=== PATIENT | male | born 1995 | race Caucasian/White ===

== ENCOUNTER 2022-12-24 03:07 | Emergency (ER) | payer OTHER, SELFPAY ==
[2022-12-24 03:17] VITALS: BP 169/102; PULSE 77; RESP 18; TEMP 36.3; O2SAT 99; BMI 30.8
--- NOTE | 2022-12-24 03:40 | ED_ITS ---
HPI - Abdominal Pain General Chief Complaint: Abdominal Pain Stated Complaint: abd pain, belly button is irratated Time Seen by Provider: 12/24/22 03:30 Source: patient Mode of arrival: Ambulatory History of Present Illness HPI narrative: Patient is a healthy 27-year-old male who presents today with variety of symptoms. He reports for the last couple of days he has had some nausea episode or 2 of vomiting and then diarrhea. He is having some lower abdominal cramping. Denies any bloody stools. He also reports that now having some erythema in his umbilicus region as well. He report some isopropyl alcohol on it. It is really nontender. He denies any fever or chills. No one else is sick home Related Data Previous Rx's Medication Instructions Recorded ondansetron 4 mg disintegrating 4 mg PO Q8H PRN nausea and 12/24/22 tablet vomiting #10 tabs Allergies Allergy/AdvReac Type Severity Reaction Status Date / Time No Known Drug Allergies Allergy Verified 12/24/22 03:17 Review of Systems Review of Systems ROS Unobtainable: All systems reviewed & are unremarkable except as noted in HPI and below Patient History Social History Smoking Status: Current some day smoker Smoking Status: Current some day smoker tobacco type: vaping alcohol intake frequency: holidays/special occasions only Substance Use Type: does not use Exam Initial Vital Signs Initial Vital Signs: Vital Signs Temperature 97.3 F L 12/24/22 03:17 Pulse Rate 77 12/24/22 03:17 Respiratory Rate 18 12/24/22 03:17 Blood Pressure 169/102 H 12/24/22 03:17 Pulse Oximetry 99 12/24/22 03:17 Oxygen Delivery Method Room Air 12/24/22 03:17 GENERAL: Alert pleasant 27-year-old male and in no acute distress. HEENT: Head atraumatic,EOMI, pupils reactive, face symmetric, moist mucous membranes CARDIOVASCULAR: Regular rate and rhythm without murmurs, rubs or gallops. RESPIRATORY: Breath sounds equal bilaterally, no wheezes rales or rhonchi. ABDOMEN: Soft, nontender. Normoactive bowel sounds all 4 quadrants. No guarding or rebound. EXTREMITIES: Normal range of motion, no clubbing or edema. Neurovascularly intact NEUROLOGICAL: Alert and oriented x4. SKIN: Warm, dry, no laceration, no petechiae, no rashes or lesions. Inside the umbilicus is mild erythema no surrounding erythema no fluctuation or swelling Course Orders Ordered: ED Orders 12/24/22 03:18 CBC Auto Diff [Complete Blood Count AUTO DIFF] Stat CMP [Comprehensive Metabolic Panel] Stat Vital Signs Vital signs: Vital Signs - 8 hr 12/24/22 03:17 Temperature 97.3 F L Pulse Rate 77 Respiratory Rate 18 Blood Pressure 169/102 H Pulse Oximetry 99 Oxygen Delivery Method Room Air MDM - Abdominal Pain Lab Data 12/24/22 03:18 12/24/22 03:18 Labs: Lab Results 12/24/22 12/24/22 Range/Units 03:18 03:18 WBC 12.1 H (4.5-11.0) X10^3/uL RBC 4.60 (4.5-5.9) X10^6/uL Hgb 13.8 (13.5-17.5) g/dL Hct 39.4 L (41-53) % MCV 85.7 (80-100) fL MCH 30.0 (26-34) PG MCHC 35.0 (30-36) % RDW 12.8 (11.6-14.8) % Plt Count 282 (150-400) X10^3/uL Neut % (Auto) 59.7 (50-75) % Lymph % (Auto) 28.9 (25-40) % [place] % (Auto) 9.5 (3-14) % Eos % (Auto) 1.7 L (2-4) % Baso % (Auto) 0.2 (0-2) % Neut # (Auto) 7200 H (8862-2644) /uL Lymph # (Auto) 3500 (0832-1962) /uL [place] # (Auto) 1200 H (0-900) /uL Eos # (Auto) 200 (0-450) /uL Baso # (Auto) 0 (0-100) /uL Sodium 138 (137-145) mmol/L Potassium 3.8 (3.4-5.1) mmol/L Chloride 103 (98-107) mmol/L Carbon Dioxide 27 (22-32) mmol/L BUN 20 (9-20) mg/dL Creatinine 0.94 (0.66-1.25) mg/dL Estimated GFR > 60 (>60) mL/min BUN/Creatinine Ratio 21.3 (6-22) Glucose 93 (70-100) mg/dL Calcium 10.1 (8.4-10.2) mg/dL Total Bilirubin 0.5 (0.2-1.3) mg/dL AST 30 (17-59) IU/L ALT 30 (<50) IU/L Alkaline Phosphatase 56 (38-126) U/L Total Protein 8.5 H (6.3-8.2) g/dL Albumin 4.8 (3.5-5.0) g/dL Globulin 3.7 (1.7-4.1) g/dL Albumin/Globulin Ratio 1.3 (1.0-2.8) MDM Narrative Medical decision making narrative: Patient 27-year-old male who presents with a variety of symptoms episodes of diarrhea nausea and vomiting for last couple of days. Mild abdominal cramping now. No vomiting vitals are stable. Symptoms consistent with a gastroenteritis. No evidence of dehydration. Umbilicus is mildly erythematous mostly appears irritated no evidence of cellulitis at this time. Blood work has been reviewed in his overall reassuring. He is tolerating fluids abdomen remains soft. No need for any further workup. Discharge Plan Departure Patient Disposition: Home Clinical Impression: Gastroenteritis Instructions: DI for Viral Gastroenteritis -- Adult Activity Restrictions/Additional Instructions: *You have been diagnosed with viral gastroenteritis *What to do: At this time increase fluids as tolerated recommend Gatorade or Gatorade like product. May increase diet as tolerated as well. Do not put any rubbing alcohol in your belly button. Try some antibiotic ointment 1-2 times daily. *Continue to take medications as directed Zofran 4 mg every 8 hours if needed for nausea or vomiting *Follow up with your primary care provider in 2-3 days or call [phone] *Return to ER if you should have persistent nausea vomiting diarrhea dizziness lightheadedness increasing redness abdominal pain or any new, worsening or concerning symptoms Prescriptions: New ondansetron 4 mg tablet,disintegrating 4 mg PO Q8H PRN (Reason: nausea and vomiting) Qty: 10 0RF Referrals: ProviderMargaret [Primary Care Provider] - Stand Alone Forms: Patient Portal/API
[2022-12-24 03:51] LABS: Alanine Aminotransferase 30 IU/L (<50); Albumin 4.8 g/dL (3.5-5.0); Albumin Globulin Ratio 1.3 (1.0-2.8); Alkaline Phosphatase 56 U/L (38-126); Aspartate Aminotransferase 30 IU/L (17-59); BUN Creatinine Ratio 21.3 (6-22); Bilirubin Total 0.5 mg/dL (0.2-1.3); Blood Urea Nitrogen 20 mg/dL (9-20); Calcium 10.1 mg/dL (8.4-10.2); Carbon Dioxide 27 mmol/L (22-32); Chloride 103 mmol/L (98-107); Estimated Glomerular Filt Rate > 60 mL/min (>60); Globulin 3.7 g/dL (1.7-4.1); Glucose 93 mg/dL (70-100); HEMOLYSIS < 15 (0-50); Potassium 3.8 mmol/L (3.4-5.1); Sodium 138 mmol/L (137-145); Total Protein 8.5 g/dL (6.3-8.2)
[2022-12-24 03:56] LABS: Add Manual Diff / Slide Review NO; Basophils Absolute Auto 0 /uL (0-100); Basophils Percent Auto 0.2 % (0-2); Eosinophils Absolute Auto 200 /uL (0-450); Eosinophils Percent Auto 1.7 % (2-4); Hematocrit 39.4 % (41-53); Hemoglobin 13.8 g/dL (13.5-17.5); Lymphocytes Absolute Auto 3500 /uL (1100-4500); Lymphocytes Percent Auto 28.9 % (25-40); Mean Corpuscular Volume 85.7 fL (80-100); Monocytes Absolute Auto 1200 /uL (0-900); Monocytes Percent Auto 9.5 % (3-14); Neutrophils Absolute Auto 7200 /uL (1500-7000); Neutrophils Percent Auto 59.7 % (50-75); Platelet Count 282 X10^3/uL (150-400); Red Cell Distribution Width 12.8 % (11.6-14.8); White Blood Cell Count 12.1 X10^3/uL (4.5-11.0)
== END 2022-12-24 04:46 | disposition home or self-care (01) ==
PROVIDERS: Emergency Provider Emergency Medicine
DX: K52.9 Noninfective gastroenteritis and colitis, unspecified (principal)
CPT/HCPCS: 80053; 85025; 99281; 99283

== ENCOUNTER 2023-08-16 20:23 | Emergency (ER) | payer OTHER, SELFPAY ==
[2023-08-16] VITALS (7 sets, daily range): BP systolic 129–174; BP diastolic 62–84; PULSE 64–81; RESP 18; TEMP 36.9; O2SAT 96–99; BMI 32.8
--- NOTE | 2023-08-16 22:39 | ED.LOWEXIN ---
HPI - Extremity Injury (Lower) General Chief Complaint: Extremity Injury, Lower Stated Complaint: lt knee injury Time Seen by Provider: 08/16/23 22:39 Source: patient Mode of arrival: Ambulatory Limitations: no limitations History of Present Illness HPI Narrative: 28-year-old male with complaint of left knee pain. Patient was working fell directly onto a metal palate on his knee striking his patella. He states it is quite painful happened earlier today. He has been able to ambulate but it is uncomfortable. States flexion-extension is uncomfortable as well. Has not really appreciate any swelling or bruising or skin changes. He states his calf feels a little bit tingling. He states his ankle is a little bit uncomfortable but not painful. He denies any other injuries. He states he is otherwise healthy, no daily prescription medications. He has not taken any medications today. Tried an ice pack earlier which he states was not helpful. Patient occasionally uses tobacco, occasional alcohol, no recreational drugs. Primary care is through the [facility]. Related Data Previous Rx's Medication Instructions Recorded ondansetron 4 mg disintegrating 4 mg PO Q8H PRN nausea and 12/24/22 tablet vomiting #10 tabs Allergies Allergy/AdvReac Type Severity Reaction Status Date / Time No Known Drug Allergies Allergy Verified 08/16/23 20:47 Review of Systems Review of Systems ROS Unobtainable: All systems reviewed & are unremarkable except as noted in HPI and below Patient History Social History Smoking Status: Former smoker Smoking Status: Former smoker tobacco type: vaping alcohol intake frequency: 0-2 drinks per day Substance Use Type: does not use Exam Narrative Exam Narrative: GENERAL: Alert and oriented x three, male in mild distress. HEENT: Head normocephalic, atraumatic, EOMI, pupils reactive, face symmetric, moist mucous membranes NECK: Supple, full range of motion EXTREMITIES: Normal range of motion, no clubbing or edema. Neurovascularly intact. Patient has mild tenderness over the patella, does have some tenderness in the soft tissue above and below. As well as the lateral tibia. Patient does not have any obvious ecchymosis, erythema or swelling. No ballotable effusion. No other bony tenderness appreciated on exam. Has 2+ posterior tibialis pulse. Cap refill less than 2 seconds. Does have full range of motion but is uncomfortable with flexion-extension. Joint laxity testing is negative. NEUROLOGICAL: Cranial nerves II through XII grossly intact. Moving all extremities SKIN: Warm, dry, no petechiae, no rashes or lesions. Initial Vital Signs Initial Vital Signs: Vital Signs Temperature 98.4 F 08/16/23 20:44 Pulse Rate 65 08/16/23 20:44 Respiratory Rate 18 08/16/23 20:44 Blood Pressure 174/84 H 08/16/23 20:44 Pulse Oximetry 97 08/16/23 20:44 Oxygen Delivery Method Room Air 08/16/23 20:44 Course Orders Ordered: ED Orders 08/16/23 22:48 XR knee LT 3V Stat Discontinued Medications Acetaminophen (Acetaminophen 325 Mg Tablet) 975 mg PO NOW ONE Stop: 08/16/23 22:49 Last Admin: 08/16/23 22:56 Dose: 975 mg Documented By: CARLY Ibuprofen (Ibuprofen 400 Mg Tablet) 800 mg PO NOW ONE Stop: 08/16/23 22:49 Last Admin: 08/16/23 22:56 Dose: 800 mg Documented By: CARLY Vital Signs Vital signs: Vital Signs - 8 hr 08/16/23 20:44 08/16/23 20:44 08/16/23 21:00 Temperature 98.4 F Pulse Rate 65 78 81 Respiratory Rate 18 Blood Pressure 174/84 H Pulse Oximetry 97 98 96 Oxygen Delivery Method Room Air 08/16/23 21:00 08/16/23 21:30 08/16/23 21:30 Temperature Pulse Rate 73 Respiratory Rate Blood Pressure 149/63 H 139/63 Pulse Oximetry 96 Oxygen Delivery Method 08/16/23 22:00 08/16/23 22:00 08/16/23 22:30 Temperature Pulse Rate 74 65 Respiratory Rate Blood Pressure 143/70 H Pulse Oximetry 99 97 Oxygen Delivery Method 08/16/23 22:30 08/16/23 23:00 08/16/23 23:00 Temperature Pulse Rate 64 Respiratory Rate Blood Pressure 129/62 146/69 H Pulse Oximetry 97 Oxygen Delivery Method 08/16/23 23:30 08/16/23 23:30 08/17/23 00:00 Temperature Pulse Rate 65 67 Respiratory Rate Blood Pressure 135/63 Pulse Oximetry 96 97 Oxygen Delivery Method 08/17/23 00:00 08/17/23 00:30 08/17/23 00:30 Temperature Pulse Rate 61 Respiratory Rate 18 Blood Pressure 138/65 137/64 Pulse Oximetry 97 Oxygen Delivery Method 08/17/23 01:08 Temperature Pulse Rate 87 Respiratory Rate 16 Blood Pressure 141/75 H Pulse Oximetry 97 Oxygen Delivery Method Room Air MDM - Extremity Injury (Lower) Imaging Data Extremity x-ray #1: Radiologist's Impression: [address] [address] XRay Report Signed Patient: Cristian Booth MR#: [id number] : 1995 Acct:[id number] Age/Sex: 28 / M Date of Service: 08/16/23 Loc: ED Accession Number: [id number] Procedure: XR knee LT 3V Ordering Provider: Lupe Lerma D.O. PROCEDURE: XR KNEE LT 3V INDICATIONS: left knee pain, fell directly on patella, can ambulate TECHNIQUE: 3 views of the knee were acquired. COMPARISON: None. FINDINGS: Bones: No fractures or dislocations. No suspicious bony lesions. Soft tissues: No joint effusion. No suspicious soft tissue calcifications. IMPRESSION: No acute bony abnormality or significant effusion. Dictated by: Mary Lou Manuel M.D. on 08/17/2023 at 0:24 Approved by: Mary Lou Manuel M.D. on 08/17/2023 at 0:24 [facility] Narrative Medical decision making narrative: 28-year-old male with left knee injury with direct fall onto his patella. Patient does appear pretty uncomfortable when taken through range of motion. We will obtain x-ray although there is no obvious ecchymosis or changes. His joint laxity testing was overall normal. Patient was given ibuprofen and Tylenol for pain. He is able to ambulate here in the department although he is uncomfortable. X-ray of knee is negative. Chandu wrap, crutches PRN, Tylenol and ibuprofen PRN for pain. Weightbear as tolerated. Discharge Plan Departure Patient Disposition: Home Clinical Impression: Left knee sprain Instructions: DI for Knee Sprain Activity Restrictions/Additional Instructions: Follow up with primary care in the next 7-10 days if your symptoms have not significantly improved. You may weightbear as tolerated. May take Tylenol up to a 1000 mg every 6 hours and/or ibuprofen up to 600 mg every 6 hours as needed for pain. Splint Care: Keep splint clean and dry. Elevated affected body part to decrease swelling. OK to use ice pack on the affected body part. Use for 15-20 minutes each time, for 5-6x per day. If you develop worsening pain, numbness, tingling, discoloration of the affected body part, loosen the splint by loosening the CHANDU wrap, and either see your doctor for an urgent re-assessment, or return to the Emergency Department. Return to the Emergency Department for any new or worsening symptoms. Prescriptions: No Action ondansetron 4 mg tablet,disintegrating 4 mg PO Q8H PRN (Reason: nausea and vomiting) Qty: 10 0RF Referrals: ProviderMargaret [Primary Care Provider] - Stand Alone Forms: Patient Portal/API
--- NOTE | 2023-08-16 22:48 | DI.RAD.S_ITS ---
PROCEDURE: XR KNEE LT 3V INDICATIONS: left knee pain, fell directly on patella, can ambulate TECHNIQUE: 3 views of the knee were acquired. COMPARISON: None. FINDINGS: Bones: No fractures or dislocations. No suspicious bony lesions. Soft tissues: No joint effusion. No suspicious soft tissue calcifications. IMPRESSION: No acute bony abnormality or significant effusion. Dictated by: Mary Lou Manuel M.D. on 08/17/2023 at 0:24 Approved by: Mary Lou Manuel M.D. on 08/17/2023 at 0:24
[2023-08-16] MEDS: IBUPROFEN 400 MG TABLET 800 MG PO (22:56)
[2023-08-16] MEDS: ACETAMINOPHEN 325 MG TABLET 975 MG PO (22:56)
[2023-08-17] VITALS: BP 138/65; PULSE 67; O2SAT 97
[2023-08-17 00:30] VITALS: BP 137/64; PULSE 61; RESP 18; O2SAT 97
[2023-08-17 01:08] VITALS: BP 141/75; PULSE 87; RESP 16; O2SAT 97
== END 2023-08-17 01:10 | disposition home or self-care (01) ==
PROVIDERS: Emergency Provider Emergency Medicine
DX: S83.92XA Sprain of unspecified site of left knee, initial encounter (principal); W18.30XA Fall on same level, unspecified, initial encounter
CPT/HCPCS: 73562; 99283

== ENCOUNTER 2024-11-28 18:31 | Emergency (ER) | payer OTHER, SELFPAY ==
[2024-11-28] VITALS (7 sets, daily range): BP systolic 130–147; BP diastolic 66–75; PULSE 56–75; RESP 18–20; TEMP 36.9; O2SAT 98–100; BMI 28.4
--- NOTE | 2024-11-28 19:39 | ED.HEATRA ---
HPI - Head Injury General Chief complaint: Head Injury Stated complaint: Head Injury Time Seen by Provider: 11/28/24 19:39 Source: patient Mode of arrival: Ambulatory History of Present Illness HPI Narrative: 29-year-old male without any significant past medical history comes into the ED from home for evaluation of head strike, states that patient was fixing cabinet and a row of cabinet fell off the wall and hit his head, states that his head went through the cabinets, no LOC, complaining of dizziness headache but no visual disturbances. Not on any blood thinners denies any other symptoms or injuries at this time. Related Data Previous Rx's ?Medication ?Instructions ?Recorded ondansetron 4 mg disintegrating 4 mg PO Q8H PRN nausea and 12/24/22 tablet vomiting #10 tabs cyclobenzaprine 10 mg tablet 10 mg PO BEDTIME PRN muscle spasm 11/28/24 1 week #7 tabs naproxen 500 mg tablet (Naprosyn) 500 mg PO BID PRN pain 1 week #14 11/28/24 tabs Allergies Allergy/AdvReac Type Severity Reaction Status Date / Time No Known Drug Allergies Allergy Verified 11/28/24 18:34 Review of Systems Review of Systems Narrative: General: Denies fever, chills, weight loss HEENT: Positive head strike, headache, denies eye drainage, eye irritation, head trauma, sore throat, voice change Cardiovascular: Denies any chest pain, palpitations, tachycardia Respiratory: Denies any shortness of breath, cough, wheeze, stridor GI/: Denies any abdominal pain, nausea, vomiting, diarrhea, bright red blood per rectum, melanotic stools, urinary frequency, urinary retention, dysuria, hematuria MSK: Denies any joint pain, muscle pains, swelling Skin: Denies any rashes, lesions, discoloration Neuro: Positive dizziness Denies any headache, lightheadedness, fainting, weakness Psych: Denies SI/HI Patient History Smoking Status: Never smoker tobacco type: vaping alcohol intake frequency: 0-2 drinks per day Exam Narrative Exam Narrative: General: Cooperative, well-developed, not in acute distress HEENT: Normocephalic, atraumatic, PERRLA, normal sclera, eyelids normal Neck: Active full range of motion, atraumatic Chest: Normal to inspection, negative crepitus, no overlying erythema ecchymosis Respiratory: Normal respiratory effort, not in acute respiratory distress, clear to auscultation bilaterally negative cough, wheeze, tachypnea, rhonchi, rales Cardiology: Regular rate rhythm negative gallop, murmur, rubs GI/: No tenderness to palpation, soft, non rigid, normal to inspection, exam deferred MSK: Full active range of motion in all 4 extremities, atraumatic, no tenderness to palpation of any bony prominences Skin: No rashes or lesions noted Neuro: Alert awake oriented x3, moves all 4 extremities spontaneously, cranial nerves intact, able to answer all questions appropriately follows commands appropriately Psych: Cooperative, negative suicidal or homicidal ideations Initial Vital Signs Initial Vital Signs: Vital Signs Temperature 98.4 F 11/28/24 18:34 Pulse Rate 75 11/28/24 18:34 Respiratory Rate 20 11/28/24 18:34 Blood Pressure 147/75 H 11/28/24 18:34 Pulse Oximetry 99 11/28/24 18:34 Oxygen Delivery Method Room Air 11/28/24 18:34 Course Vital Signs Vital signs: Vital Signs - 8 hr 11/28/24 18:34 Temperature 98.4 F Pulse Rate 75 Respiratory Rate 20 Blood Pressure 147/75 H Pulse Oximetry 99 Oxygen Delivery Method Room Air MDM - Head Injury MDM Narrative Medical decision making narrative: 29-year-old male presenting for head strike, states that he was fixing row of cabinet when the cavernous fell off the wall and onto his head, he denies LOC not on any blood thinners just complaining of the headache and some neck pain, he is neuro intact otherwise, CT neck CT head without any acute findings, did note benign scalp masses which was informed to the patient, patient was given strict return precautions safe for discharge home with outpatient follow up NIH of 0 Discharge Plan Departure Patient Disposition: Home Clinical Impression: Closed head injury Instructions: Concussion, DI for Closed Head Injury Activity Restrictions/Additional Instructions: Please follow up with the primary care doctor Please read the discharge instructions sheet carefully and bring all papers to all doctor follow-up visits, as it may contain information that your doctor may want to see. Disease processes change and evolve, if your symptoms worsen or if you develop any new symptoms that are concerning to you please return for evaluation. Your evaluation today does not show any evidence of any life-threatening/serious illnesses requiring admission to the hospital or surgery. Please follow-up with your doctor for re-evaluation in approximately 1 day. Seek immediate medical attention for any worrisome symptoms. *If you do not have a primary care provider please contact the [facility] Resource line at [phone]. They will ask some questions about your medical history and help get you set up with a doctor in the community. Prescriptions: New naproxen [Naprosyn] 500 mg tablet 500 mg PO BID PRN (Reason: pain) 7 Days Qty: 14 0RF cyclobenzaprine 10 mg tablet 10 mg PO BEDTIME PRN (Reason: muscle spasm) 7 Days Qty: 7 0RF No Action ondansetron 4 mg tablet,disintegrating 4 mg PO Q8H PRN (Reason: nausea and vomiting) Qty: 10 0RF Referrals: ProviderMargaret [Primary Care Provider, Family Practice] Stand Alone Forms: Patient Portal/API
--- NOTE | 2024-11-28 19:40 | DI.CT.S_ITS ---
PROCEDURE: CT HEAD/BRAIN WO CON INDICATIONS: Trauma TECHNIQUE: Noncontrast 4.5 mm thick angled axial sections acquired from the foramen magnum to the vertex, with coronal and sagittal reformats. For radiation dose reduction, the following was used: automated exposure control, adjustment of mA and/or kV according to patient size. COMPARISON: None. FINDINGS: Image quality: Diagnostic. CSF spaces: Basal cisterns are patent. No extra-axial fluid collections. Ventricles are normal in size and shape. Brain: No midline shift. No intracranial mass effect or hemorrhage. Mueller- white matter interface is normal. Skull and face: Calvarium and visualized facial bones are intact, without suspicious lesions. Multiple partially calcified scalp masses. A larger mass at the posterior scalp measuring 2.5 cm, (/). Sinuses: Visualized sinuses and mastoids are clear. IMPRESSION: 1. No acute intracranial hemorrhage. 2. Multiple benign appearing scalp masses. Partially calcified. Dictated by: Mckay Pardo M.D. on 11/28/2024 at 20:21 Approved by: Mckay Pardo M.D. on 11/28/2024 at 20:24
--- NOTE | 2024-11-28 19:40 | DI.CT.S_ITS ---
PROCEDURE: CT CERVICAL SPINE WO CON INDICATIONS: trauma TECHNIQUE: Noncontrast 3 mm thick sections acquired from the skull base to the T4 level. Sagittal and coronal reformats were then constructed. For radiation dose reduction, the following was used: automated exposure control, adjustment of mA and/or kV according to patient size. COMPARISON: None. FINDINGS: Image quality: Excellent. Bones: No fractures or dislocations. Visualized superior ribs are intact. Degenerative changes. Soft tissues: Prevertebral soft tissues are normal in thickness. No paravertebral hematomas. No apical pneumothoraces. IMPRESSION: No displaced fracture or traumatic subluxation. Dictated by: Mckay Pardo M.D. on 11/28/2024 at 20:31 Approved by: Mckay Pardo M.D. on 11/28/2024 at 20:34
== END 2024-11-28 21:16 | disposition home or self-care (01) ==
PROVIDERS: Emergency Provider Student in an Organized Health Care Education/Training Program
DX: S09.90XA Unspecified injury of head, initial encounter (principal); W22.8XXA Striking against or struck by other objects, initial encounter
CPT/HCPCS: 70450; 72125; 99281; 99284